=== PATIENT | female | born 1940 | race Two or more races ===

== ENCOUNTER 2018-01-23 10:59 | Emergency (ER) | payer OTHER ==
[~2018-01-23] VITALS: Ht 144.8 cm; Wt 54.9 kg
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
[2018-01-23 11:07] VITALS: BP 126/84
[2018-01-23] MEDS ORDERED: Acetaminophen 500mg (ES) tab ORAL ONE (11:15)
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
--- NOTE | 2018-01-23 12:30 | Diagnostic Imaging Report ---
Indication: Chest pain. Trauma Technique: Continuous helical transaxial imaging of the chest was obtained from the thoracic inlet to the upper abdomen. No intravenous contrast was administered. Coronal 2-D reformats were also obtained. Total Dose length Product (DLP): 954.[address] Dose Index Volume (CTDIvol): 20.02,13.77 mGy Comparison: none Findings: There is no obvious acute injury identified. There is no pneumothorax or opacity to suggest a contusion. No pleural or pericardial effusion seen. No obvious rib injury or other osseous injury identified. There is a mild degree of peripheral subpleural bleb formation and reticulation likely due to mild fibrosis present at the lung periphery especially in the lower lobes. Suggestion of emphysema in the upper lobes with some hyperlucency noted. Please correlate clinically. Aorta is moderately ectatic. The heart is enlarged. There is a moderate size hiatal hernia present. The visualized part of the upper abdomen is unremarkable. IMPRESSION: No acute injury identified within the chest. Mild peripheral fibrosis within the lungs. Cardiomegaly Moderate hiatal hernia Suggestion of COPD Atherosclerotic vascular disease The CT scanner at [facility] is accredited by the [employer] and the scans are performed using dose optimization techniques as appropriate to a performed exam including Automatic Exposure control.
[2018-01-23] MEDS ORDERED: NORCO 5-325 TA1 EACH ORAL (12:48)
[2018-01-23] MEDS ORDERED: TEGRETOL200 MG PO (12:48)
[2018-01-23 13:22] VITALS: BP 126/84
== END 2018-01-23 13:22 | disposition home or self-care (01) ==
LOC: EDBD 10:59 → EMR 11:35
DX: S16.1XXA Strain of muscle, fascia and tendon at neck level, initial encounter (principal); V43.62XA Car passenger injured in collision with other type car in traffic accident, initial encounter; Y92.410 Unspecified street and highway as the place of occurrence of the external cause; M54.12 Radiculopathy, cervical region; I10 Essential (primary) hypertension; M47.812 Spondylosis without myelopathy or radiculopathy, cervical region
CPT/HCPCS: 71250; 72125; 99284